=== PATIENT | female | born 1955 | race Caucasian/White ===

== ENCOUNTER 2017-04-10 06:06 | Inpatient (IN) | payer OTHER ==
[~2017-04-10] VITALS: Ht 154.9 cm; Wt 69.2 kg
[2017-04-10] VITALS (17 sets, daily range): BP systolic 90–138; BP diastolic 53–83; PULSE 74–98; RESP 14–24; Ht 154.9 cm; Wt 69.2 kg
[~2017-04-10 06:06] MED LIST: ASPI-650 PO; ATOR40TA21 PO; MONT10TA21 PO; OMEP20TA42 PO; OMEP40CA6 PO; PROP40TA54 PO
[2017-04-10] MEDS ORDERED: CEFAZOLIN 1 GM INJ ONE (07:00)
[2017-04-10] MEDS ORDERED: SEVOFLURANE 15 MIN ONE (07:00)
[2017-04-10] MEDS ORDERED: LEVO75TA5 PO (07:01)
[2017-04-10] MEDS ORDERED: GABA100C14 PO (07:01)
[2017-04-10] MEDS ORDERED: MELO-109 PO (07:01)
[2017-04-10] MEDS ORDERED: LORA0.5T PO (07:01)
[2017-04-10] MEDS ORDERED: LIDOCAINE 2%/EPI 30 ML INJ ONE (07:17)
[2017-04-10] MEDS ORDERED: MIDAZOLAM 1 MG/ML 2 ML INJ ONE (07:32)
[2017-04-10] MEDS ORDERED: PROPOFOL 20 ML ONE (07:32)
[2017-04-10] MEDS ORDERED: ROCURONIUM 50 MG INJ ONE (07:32)
[2017-04-10] MEDS ORDERED: morphine SULFATE/PF (10 MG/10 ML) INJ ONE (07:32)
--- NOTE | 2017-04-10 07:40 | HPN ---
Date/Time of Note Date/Time of Note DATE: 04/10/17 TIME: 07:40 Interval H&P Admission Note Pt. seen H&P reviewed: No system changes JOON MELCHOR MD Apr 10, 2017 07:40
[2017-04-10 08:02] LABS: ADD UMIC YES; UR ASCORBIC ACID NEGATIVE (NEGATIVE); UR BACTERIA FEW /HPF (NONE SEEN); UR BILIRUBIN (Dip) NEGATIVE (NEGATIVE); UR BLOOD (Dip) 2+ mg/dL (NEGATIVE); UR CLARITY SLIGHTLY CLOUDY (CLEAR); UR COLOR YELLOW (YELLOW); UR GLUCOSE (Dip) NEGATIVE (NEGATIVE); UR KETONES (Dip) NEGATIVE (NEGATIVE); UR LEUKOCYTE ESTERASE (Dip) NEGATIVE Leu/ul (NEGATIVE); UR NITRITE (Dip) NEGATIVE (NEGATIVE); UR RBC 14 /HPF (0-5); UR SPECIFIC GRAVITY (Dip) 1.021 (1.003-1.030); UR SQUAMOUS EPITHELIAL CELL FEW /HPF (FEW); UR TOTAL PROTEIN (Dip) NEGATIVE (NEGATIVE); UR UROBILINOGEN (Dip) NEGATIVE (NEGATIVE)
[2017-04-10] MEDS ORDERED: PHENYLephrine (100 MCG/ML) 5ML SYG ONE ×2 (08:52→09:40)
[2017-04-10] MEDS ORDERED: DEXAMETHASONE 4 MG/ML 1 ML INJ ONE (09:08)
[2017-04-10] MEDS ORDERED: ONDANSETRON 4 MG INJ ONE (09:08)
[2017-04-10] MEDS ORDERED: METOCLOPRAMIDE 10 MG INJ ONE (09:08)
[2017-04-10] MEDS ORDERED: KETOROLAC 30 MG INJ ONE (09:08)
[2017-04-10] MEDS ORDERED: CLINDAMYCIN 2% 40 GM VAG CR VAG SCH (09:30)
[2017-04-10] MEDS ORDERED: GLYCOPYRROLATE 0.4 MG INJ ONE (09:49)
[2017-04-10] MEDS ORDERED: NEOSTIGMINE 3 MG/3 ML SYRINGE ONE (09:49)
[2017-04-10] MEDS ORDERED: ONDANSETRON 4 MG INJ IV PRN ×2 (10:00→10:30)
[2017-04-10] MEDS ORDERED: NALBUPHINE HCL (10 MG/1 ML) INJ IV PRN (10:00)
[2017-04-10] MEDS ORDERED: ALBUMIN HUMAN 5% 250 ML IV PRN (10:00)
[2017-04-10] MEDS ORDERED: HYDROCODONE/APAP (5/325) TAB PO PRN (10:00)
[2017-04-10] MEDS ORDERED: morphine 2 MG INJ IV PRN (10:00)
[2017-04-10] MEDS ORDERED: ACETAMINOPHEN 500 MG TAB PO PRN (10:00)
[2017-04-10] MEDS ORDERED: morphine 4 MG/ML VIAL IV PRN (10:00)
[2017-04-10] MEDS ORDERED: HYDROmorphONE 1 MG/ML SYG IV PRN ×2 (10:00)
[2017-04-10] MEDS ORDERED: FENTAnyl 50 MCG/ML VIAL IV PRN ×3 (10:00)
[2017-04-10] MEDS ORDERED: NALOXONE (0.4 MG/ML) INJ IV PRN (10:00)
[2017-04-10] MEDS ORDERED: EPHEDrine SULFATE 50 MG/5 ML SYG IV PRN (10:00)
[2017-04-10] MEDS ORDERED: DIPHENHYDRAMINE 50 MG INJ IV PRN (10:00)
--- NOTE | 2017-04-10 10:07 | OPR ---
Date/Time of Note Date/Time of Note DATE: 04/10/17 TIME: 10:01 Operative Report Free Text/Dictation 61 y.o A1- uterine prolapse with uterine fibroids and rectocele Preoperative Diagnosis uterine prolapse 2degree small uterine fibroids rectocele Postoperative Diagnosis same as above see pathology Operation/Procedure Performed vaginal hysterectomy and psterior colporrhaphy Surgeon: JOON MELCHOR MD workers compensation claims assistant: ALONZO HAYWOOD MD Anesthesia Type: general, spinal Estimated Blood Loss: 50 - 100 ml's Transfusion Required: no Specimens uterus cervix post vaginal mucosa Complications: no JOON MELCHOR MD Apr 10, 2017 10:07
--- NOTE | 2017-04-10 10:23 | HP ---
Date/Time of Note Date/Time of Note DATE: 04/10/17 TIME: 10:08 Assessment/Plan VTE Prophylaxis VTE Prophylaxis Intervention: ambulation, anti-embolic stocking Lines/Catheters IV Catheter Type (from Nrsg): Peripheral IV Urinary Cath still in place: Yes Reason Cath still needed: other (indicate) (unable to void due to surgical procedure) Assessment/Plan Assessment/Plan uterine prolapse and uteerine fibroids rectocele Plan vaginal hysterectomy and posterior colporrhaphy HPI/ROS Admit Date/Time Admit Date/Time Apr 10, 2017 at 06:06 Hx of Present Illness 61 y.o A1 with pelvi relaxation , reluctant to use pessary here for vaginal hysterectomy and poss ant and post colporrhaphy. patient had hx of tachycardia intermittent and inocent cardiac murmur which was cleared by automobile technician for performing surgical procedure. patient was infomed regarding possible complications from surgical proccedure and anesthesia from minor to serious in detail and understood fully and gave the consent for surgical intervention. . ROS no significant sujective symptoms Constitutional: improved, no complaints PMH/Family/Social Past Medical History Medical History: other (palpitation ) Past Surgical History 2011 left salphingectomy 20yrs ago lumpectomy for breast cancer Family History Significant Family History: hypertension (mother) Social History Alcohol Use: none Smoking Status: Current every day smoker Drug Use: none Exam/Review of Systems Vital Signs Vitals Vital Signs Date Time Temp Pulse Resp B/P Pulse Ox O2 Delivery O2 Flow Rate FiO2 04/10/17 06:53 97.1 74 18 138/79 96 Room Air Exam Exam uterus 2nd prolapse uterine fibrois rectocele Constitutional: alert, oriented, well developed Psych: nl mood/affect, no complaints Head: atraumatic, normocephalic Eyes: EOMI, PERRL, nl conjunctiva, nl lids, nl sclera ENMT: nl external ears & nose, nl lips & teeth, nl nasal mucosa & septum Neck: non-tender, supple Respiratory: clear to auscultation, normal air movement Cardiovascular: nl pulses, regular rate and rhythm Gastrointestinal: nl liver, spleen, non-tender, soft Genitourinary - Female: CMT, CVA tenderness, nl adnexae, nl external genitalia , other, uterus Musculoskeletal: nl extremities to inspection Extremities: normal pulses Neurological: OUTSIDE RESIDENTIAL SALES PROFESSIONAL II-XII intact, nl mental status, nl speech, nl strength Skin: nl turgor, No rash or lesions Lymph: nl lymph nodes Medications Medications Current Medications Hydromorphone HCl (Dilaudid) 0.2 mg Q2H PRN IV PAIN LEVEL 1-5; Start 04/10/17 at 10:00; Stop 04/10/17 at 15:00 Hydromorphone HCl (Dilaudid) 0.4 mg Q2H PRN IV PAIN LEVEL 6-10; Start 04/10/17 at 10:00; Stop 04/10/17 at 15:00 Morphine Sulfate (morphine) 2 mg Q2H PRN IV PAIN LEVEL 1-5; Start 04/10/17 at 10 :00; Status UNV Morphine Sulfate (morphine) 4 mg Q2H PRN IV PAIN LEVEL 6-10; Start 04/10/17 at 10:00; Status UNV Acetaminophen (Tylenol Tab) 500 mg Q4H PRN PO PAIN LEVEL 1-3; Start 04/10/17 at 10:00; Status UNV Acetaminophen/ Hydrocodone Bitart (Nada (5/325)) 1 tab Q4H PRN PO PAIN LEVEL 4 -6; Start 04/10/17 at 10:00; Status UNV Diphenhydramine HCl (Benadryl) 25 mg Q4H PRN IV PRURITUS; Start 04/10/17 at 10: 00; Status UNV Nalbuphine HCl (Nubain) 10 mg Q4H PRN IV PRURITUS; Start 04/10/17 at 10:00; Status UNV Ondansetron HCl (Zofran Inj) 4 mg Q6H PRN IV NAUSEA AND/OR VOMITING; Start 04/10 at 10:00; Status UNV Naloxone HCl (Narcan) 0.2 mg Q2M PRN IV FOR RESP RATE 8 OR LESS; Start 04/10/17 at 10:00; Status UNV JOON MELCHOR MD Apr 10, 2017 10:18
[2017-04-10] MEDS ORDERED: metroNIDAZOLE 500 MG/NS (PMX) 100 ML IVPB ONE (10:40)
[2017-04-10] MEDS: metroNIDAZOLE 500 MG/NS (PMX) 100 ML IVPB SCH ×2 (10:48→18:53)
[2017-04-10] MEDS: LACTATED RINGER'S 1,000 ML IV SCH ×3 (10:48→20:28)
[2017-04-10] MEDS: CEFAZOLIN 2 GM/50 ML (PMX) 50 ML IVPB SCH ×2 (15:12→22:35)
[2017-04-10] MEDS ORDERED: PANTOPRAZOLE (EC) 40 MG TAB PO ONE (22:30)
[2017-04-11 02:00] VITALS: BP 104/55; RESP 18
[2017-04-11] MEDS: metroNIDAZOLE 500 MG/NS (PMX) 100 ML IVPB SCH (02:46)
[2017-04-11] MEDS: BENZOCAINE 20% 56 ML SPRAY TOP PRN ×2 (03:03→15:30)
[2017-04-11] MEDS: HYDROCODONE/APAP (5/325) TAB PO PRN ×4 (03:15→17:23)
[2017-04-11] MEDS: PANTOPRAZOLE 40 MG INJ IV SCH (05:41)
[2017-04-11] MEDS: CEFAZOLIN 2 GM/50 ML (PMX) 50 ML IVPB SCH (05:57)
[2017-04-11] MEDS ORDERED: PANTOPRAZOLE (EC) 40 MG TAB PO SCH (06:00)
[2017-04-11] MEDS: LACTATED RINGER'S 1,000 ML IV SCH ×4 (06:28→18:11)
[2017-04-11 06:33] LABS: ADD UMIC YES; UR ASCORBIC ACID NEGATIVE (NEGATIVE); UR BILIRUBIN (Dip) NEGATIVE (NEGATIVE); UR BLOOD (Dip) 2+ mg/dL (NEGATIVE); UR CLARITY CLEAR (CLEAR); UR COLOR YELLOW (YELLOW); UR GLUCOSE (Dip) NEGATIVE (NEGATIVE); UR KETONES (Dip) 1+ mg/dL (NEGATIVE); UR LEUKOCYTE ESTERASE (Dip) TRACE Leu/ul (NEGATIVE); UR NITRITE (Dip) NEGATIVE (NEGATIVE); UR RBC 75 /HPF (0-5); UR SPECIFIC GRAVITY (Dip) 1.014 (1.003-1.030); UR TOTAL PROTEIN (Dip) NEGATIVE (NEGATIVE); UR UROBILINOGEN (Dip) NEGATIVE (NEGATIVE)
[2017-04-11 06:35] LABS: BASOPHILS % 0.4 % (0.0-2.0); EOSINOPHILS % 0.1 % (0.0-7.0); HEMATOCRIT 32.7 % (37.0-47.0); HEMOGLOBIN 10.5 g/dl (12.0-16.0); LYMPHOCYTES % 19.8 % (15.0-51.0); MEAN CORPUSCULAR HEMOGLOBIN 27.6 pg (29.0-33.0); MEAN CORPUSCULAR HGB CONC 32.1 g/dl (32.0-37.0); MEAN CORPUSCULAR VOLUME 86.1 fl (82.0-101.0); MONOCYTE # 0.8 10^3/ul (0.3-0.9); MONOCYTES % 7.4 % (0.0-11.0); NEUTROPHIL # 7.3 10^3/ul (1.6-7.5); NEUTROPHILS % 71.8 % (39.0-77.0); PLATELET COUNT 262 10^3/UL (140-415); RED CELL DISTRIBUTION WIDTH 14.6 % (11.5-14.5); WHITE BLOOD COUNT 10.2 10^3/ul (4.8-10.8)
[2017-04-11 07:02] LABS: CALCIUM 7.6 mg/dl (8.4-10.2); CREATININE 0.73 mg/dl (0.44-1.00); POTASSIUM 3.6 mmol/L (3.5-5.1)
[2017-04-11 07:23] VITALS: BP 100/56; RESP 18
[2017-04-11 13:41] VITALS: BP 122/58; RESP 18
[2017-04-11 17:00] VITALS: BP 137/65; PULSE 79; RESP 18
--- NOTE | 2017-04-11 17:12 | PN ---
Date/Time of Note Date/Time of Note DATE: 04/11/17 TIME: 17:08 Assessment/Plan Lines/Catheters IV Catheter Type (from Nrsg): Peripheral IV Orozco in Place (from Nrsg): Yes Subjective 24 Hr Interval Summary S; c/o chest pain no nausea ,vomitinf flatus ? o vss afebrile O2 sat 95 A chest pain 5/10 P EKG Exam/Review of Systems Vital Signs Vitals Vital Signs Date Time Temp Pulse Resp B/P Pulse Ox O2 Delivery O2 Flow Rate FiO2 04/11/17 13:41 98.5 71 18 122/58 94 04/10/17 14:21 Room Air Intake and Output 04/10/17 04/10/17 04/11/17 15:00 23:00 07:00 Intake Total 2100 ml 1270 ml 1480 ml Output Total 500 ml 1000 ml 600 ml Balance 1600 ml 270 ml 880 ml Results Result Diagram: 04/11/17 0546 04/11/17 0546 JOON MELCHOR MD Apr 11, 2017 17:12
[2017-04-11] MEDS ORDERED: LEVOTHYROXINE 75 MCG TAB PO ONE (18:00)
[2017-04-11] MEDS: IBUPROFEN 600 MG TAB PO PRN (18:08)
[2017-04-11] MEDS: DOCUSATE SODIUM 100 MG CAP PO SCH (20:43)
[2017-04-11] MEDS: PROPRANOLOL 40 MG TAB PO SCH (20:43)
[2017-04-11 20:56] VITALS: BP 118/59; RESP 16
[2017-04-12 02:42] VITALS: BP 130/64; RESP 16
[2017-04-12] MEDS: HYDROCODONE/APAP (5/325) TAB PO PRN (03:01)
[2017-04-12] MEDS: LACTATED RINGER'S 1,000 ML IV SCH ×3 (04:08→14:19)
[2017-04-12] MEDS: PANTOPRAZOLE 40 MG INJ IV SCH (05:31)
[2017-04-12] MEDS: IBUPROFEN 600 MG TAB PO PRN (06:17)
[2017-04-12] MEDS ORDERED: LEVOTHYROXINE 75 MCG TAB PO SCH (07:00)
--- NOTE | 2017-04-12 07:50 | OPR ---
DATE OF OPERATION: 04/10/2017 PREOPERATIVE DIAGNOSIS: 1. Uterine prolapse and rectocele. 2. History of leiomyomata. POSTOPERATIVE DIAGNOSIS: 1. Uterine prolapse and rectocele. 2. History of leiomyomata. 3. See pathology report. OPERATION PERFORMED: Vaginal hysterectomy and posterior repair. ANESTHESIA: General and spinal. ANESTHESIOLOGIST: CLINICAL MENTAL HEALTH COUNSELOR: Dr. Willis SURGEON: Billie Ruiz MD ESTIMATED BLOOD LOSS: Approximately 100 mL. OPERATION PERFORMED: Under appropriate induction of general anesthesia, the patient was placed on the position. Perineal area and vagina were was prepped and draped in usual aseptic manner. On inspection of external genitalia there was no gross abnormality except the relaxed posterior facet and the bimanual examination reveals uterus appeared to be approximately 6 weeks gestational size, somewhat formed in consistency with irregularity. Weighted speculum introduced. Cervix was identified which was parous appearing, grasped with a double pronged tenaculum and 2 percent xylocaine with epinephrine was injected in circular fashion in the cervical mucosa. The circular incision was made, through the cervical mucosa and the mucosa was from the cervix anteriorly and posteriorly. Posteriorly, which the posterior reflection of the peritoneum which was entered and this was replaced with a weighted Cori retractor. Anteriorly further dissection of the vaginal mucosa and anterior peritoneal reflection was found and tried to open it, somewhat difficult to open. At this point, both the uterosacral ligament was clamped, cut, and ligated with number 1 chromic catgut, suture was left long. The cardinal ligament on each side clamped and cut, ligated with number 1 chromic catgut and the further trial of entering the anterior peritoneal reflection which was successful and the uterine vessel was clamped and cut, ligated with number 1 chromic on each side and then the round ligament and the portion of the broad ligament was clamped and cut, ligated with number 1 chromic catgut on each side. At this point, the fundus was able to be delivered and the utero-ovarian ligament, and fallopian tubes were clamped and cut, ligated with a number 1 chromic catgut. Suture was left long the repair of peritoneal incision was done using 0 chromic catgut in continuous manner in the clockwise. The entire peritoneum was closed. With the free needle, the suture on the uterosacral ligament and the fallopian brought in to the sites, which was tied on each side. The vaginal vault was closed using 0 chromic catgut in continuous manner, starts from the right side to the left. No bleeding was noted. Posteriorly the posterior facet was very relaxed and inverted T incision was made on the perineum, which was excised and the posterior vaginal mucosa was from the underlying rectum. Further dissection of the posterior vaginal mucosa from the underlying on the side and the pararectal fascia was seen which was closed with a 2-0 chromic catgut and redundant posterior vaginal mucosa was excised and the posterior vaginal mucosa was closed using 2-0 chromic catgut up to the to the hymeneal ring. And then, number 1 Vicryl was placed on the with a finger in the rectum and the perineal body. Then the rest of the vulvar cavernous muscle was closed with 2-0 chromic catgut and the perineal skin was closed with the same suture in subcuticular manner. The suture was tied at the hymenal ring. No bleeding was noted. The procedure was completed. A 2 percent Cleocin soaked vaginal packing was inserted. A Orozco catheter was introduced and the clear urine was drained, large amount. The procedure was completed. All the instrument count, sponge count correct. The patient withstood the procedure well and sent to the recovery room in stable condition. Dictated By: Billie Ruiz MD /olaf/ /Document#: [id number]
[2017-04-12 08:06] VITALS: BP 140/70; RESP 16
[2017-04-12] MEDS: DOCUSATE SODIUM 100 MG CAP PO SCH (08:26)
[2017-04-12] MEDS: PROPRANOLOL 40 MG TAB PO SCH (08:26)
[2017-04-12] MEDS ORDERED: ASPIRIN 81 MG TAB PO SCH (09:00)
[2017-04-12] MEDS ORDERED: MELOXICAM 7.5 MG TAB PO SCH (09:00)
[2017-04-12] MEDS ORDERED: MONTELUKAST 10 MG TAB PO SCH (09:00)
[2017-04-12 16:14] VITALS: BP 116/56; RESP 16
--- NOTE | 2017-04-12 19:24 | PD.PPDC ---
SCIENTIFIC SOFTWARE ENGINEER Discharge Instruction Diagnosis Final Diagnosis: terine prolapse rectocele Condition Patient Condition: Stable Diet Diet: Resume Regular Diet Activity/Restrictions Activity: May Shower Restrictions: No Exercising No Lifting Minimize Stair-climbing No Sexual Activity Nothing in the Vagina No [place] No Tampons, douche Follow-up Follow-up with Physician: 8, Week/Weeks Return to clinic for FACTORY ASSEMBLER Instructions: Fever greater than 101 Chills Worsening abdominal pain Excessive Vaginal Bleeding More than 2 pads per hour Unable to tolerate diet JOON MELCHOR MD Apr 12, 2017 19:24
--- NOTE | 2017-04-12 19:29 | DS ---
Date/Time of Note Date/Time of Note DATE: 04/12/17 TIME: 19:25 Discharge Summary Admission/Discharge Info Admit Date/Time Apr 10, 2017 at 06:06 Discharge Date/Time apr 12 2017 at 1930 Discharge Diagnosis uterine prolapse rectocele Patient Condition: Stable Consults none Procedures vaginal hysterectomy post colporrhaphy Hx of Present Illness 61 y.o A1 with pelvi relaxation , reluctant to use pessary here for vaginal hysterectomy and poss ant and post colporrhaphy. patient had hx of tachycardia intermittent and inocent cardiac murmur which was cleared by biometrics head for performing surgical procedure. patient was infomed regarding possible complications from surgical proccedure and anesthesia from minor to serious in detail and understood fully and gave the consent for surgical intervention. . Hospital Course post op pt had unevenful course tolerating diet well voiding ok , had bm Home Meds Reported Medications Lorazepam* (Lorazepam*) 0.5 Mg Tablet, 0.5 MG PO HS, TAB 04/10/17 Meloxicam* (Meloxicam*) 7.5 Mg Tablet, 7.5 MG PO DAILY, #30 TAB 04/10/17 Gabapentin* (Gabapentin*) 100 Mg Capsule, 100 MG PO TID, #90 CAP 04/10/17 Levothyroxine Sodium* (Levothyroxine Sodium*) 75 Mcg Tablet, 75 MCG PO BEFORE BREAKFAST, #30 TAB 04/10/17 Omeprazole* (Omeprazole*) 40 Mg Capsule.dr, 40 MG PO DAILY, CAP 07/06/15 Propranolol Hcl* (Inderal*) 40 Mg Tab, 40 MG PO BID 06/05/12 Atorvastatin (Lipitor) 40 Mg Tablet, 40 MG PO DAILY 06/04/12 Montelukast Sodium* (Singulair*) 10 Mg Tablet, 10 MG PO DAILY 06/04/12 Aspirin (Aspirin) 81 Mg Tablet, 81 MG PO DAILY 06/04/12 Discontinued Reported Medications Omeprazole (Omeprazole) 20 Mg Tablet.dr, 20 MG PO BID 06/04/12 Follow-up Plan 8weeks at the office Primary Care Provider Mahesh Palencia Time spent on discharge: < 30 minutes JOON MELCHOR MD Apr 12, 2017 19:29
[2017-04-13] MEDS ORDERED: PANTOPRAZOLE (EC) 40 MG TAB PO SCH (06:00)
--- NOTE | 2017-04-14 11:17 | RADRPT ---
Vent Rate: 72 bpm RR Interval: 0 msec CA Interval: 148 msec QRS Duration: 74 msec QT Interval: 400 msec QTC Interval: 438 msec P-R-T [place]: 58 - 83 - 40 degrees Normal sinus rhythm Low voltage QRS Septal infarct , age undetermined Abnormal ECG Electronically Signed By: Armando Hadley [id number]
== END 2017-04-12 21:00 | disposition home or self-care (01) | DRG 743 ==
LOC: REC 06:06 → EDSTATUS 07:30 → MS2 11:30
PROVIDERS: ADMIT Obstetrics & Gynecology; ATTEND Obstetrics & Gynecology
PROC: 0UTC7ZZ Resection of Cervix, Via Natural or Artificial Opening (ICD-10-PCS; 2017-04-10)
PROC: 0JQC0ZZ Repair Pelvic Region Subcutaneous Tissue and Fascia, Open Approach (ICD-10-PCS; 2017-04-10)
PROC: 0UT97ZZ Resection of Uterus, Via Natural or Artificial Opening (ICD-10-PCS; principal; 2017-04-10 07:30)
DX: N81.4 Uterovaginal prolapse, unspecified (principal); D25.9 Leiomyoma of uterus, unspecified; Z85.3 Personal history of malignant neoplasm of breast; F17.210 Nicotine dependence, cigarettes, uncomplicated; E78.5 Hyperlipidemia, unspecified; E03.9 Hypothyroidism, unspecified
CPT/HCPCS: 80048; 81001; 85025; 86850; 86900; 86901; 86920; 87086; 88305; 93005; A4310; C9113; J0690; J1100; J1885; J2250; J2274; J2370; J2405; J2710; J2765; J7120

== ENCOUNTER 2017-09-11 07:04 | Day surgery (SDC) | END 2017-09-11 15:22 | disposition home or self-care (01) ==

== ENCOUNTER → 2018-12-17 | Outpatient (CLI) | payer MEDICARE, OTHER ==
[~2018-12-17] MED LIST changes: +GABA100C14 PO; +LEVO75TA5 PO; +LORA0.5T PO; +MELO7.5T38 PO; -OMEP20TA42 PO
== END | disposition home or self-care (01) ==
LOC: C/S 11:25
PROVIDERS: ATTEND Surgery
DX: R10.32 Left lower quadrant pain (principal)
CPT/HCPCS: 74176